=== PATIENT | female | born 1965 | race Caucasian/White ===

== ENCOUNTER 2021-08-07 11:14 | Emergency (ER) | payer BC, OTHER ==
[~2021-08-07] VITALS: Ht 175.3 cm; Wt 66.7 kg
[~2021-08-07 11:14] MED LIST: LEXAPRO20 MG
[2021-08-07] MEDS ORDERED: SODIUM CHLORIDE 0.9% 1000ML 1,000 ML IV STA (11:59)
[2021-08-07] MEDS ORDERED: LORAZEPAM INJ 2 MG/ML VIAL IV ONE (12:20)
[2021-08-07 12:30] LABS: BASOPHILS # (AUTO) 0.1 (0.0-0.1); BASOPHILS % 0.6 % (0.0-1.0); EOSINOPHILS # (AUTO) 0.2 (0.0-0.4); EOSINOPHILS % 2.4 % (0.0-6.0); HEMATOCRIT 50.7 % (34.2-44.1); HEMOGLOBIN 17.5 g/dL (12.0-16.0); LYMPHOCYTES # (AUTO) 1.8 (1.0-3.2); LYMPHOCYTES % 20.2 % (18.0-39.1); MEAN CORPUSCULAR HEMOGLOBIN 33.5 pg (28-32); MEAN CORPUSCULAR HGB CONC 34.5 g/dL (31-35); MEAN CORPUSCULAR VOLUME 97.1 fL (81-99); MONOCYTES # (AUTO) 0.6 (0.2-0.8); MONOCYTES % 6.7 % (4.4-11.3); NEUTROPHILS # (AUTO) 6.2 (2.1-6.9); NEUTROPHILS % 69.6 % (38.7-80.0); PLATELET COUNT 292 x10e3/uL (140-360); RED BLOOD COUNT 5.22 x10e6/uL (3.6-5.1); RED CELL DISTRIBUTION WIDTH 13.2 % (11.7-14.4)
[2021-08-07 12:50] LABS: SALICYLATE < 5.0 mg/dL (0-30)
[2021-08-07 12:51] LABS: ALBUMIN 4.8 g/dL (3.5-5.0); ALBUMIN/GLOBULIN RATIO 1.4 (0.8-2.0); ANION GAP 19.1 mmol/L (8-16); CALCIUM 9.7 mg/dL (8.4-10.2); CLARITY,URINE CLEAR (CLEAR); COLOR,URINE YELLOW (YELLOW); CREATININE, SERUM 0.87 mg/dL (0.57-1.11); KETONES,URINE NEGATIVE (NEGATIVE); LEUKOCYTE ESTERASE ,URINE NEGATIVE (NEGATIVE); MAGNESIUM 1.7 MG/DL (1.3-2.1); NITRITE,URINE POSITIVE (NEGATIVE); POTASSIUM 4.1 mmol/L (3.5-5.1); PROTEIN,URINE DIPSTICK NEGATIVE (NEGATIVE); URINE UROBILINOGEN 0.2 mg/dL (0.2 - 1)
[2021-08-07 12:53] LABS: AMPHETAMINES SCREEN,URINE NEGATIVE (NEGATIVE); BENZODIAZEPINES SCREEN,URINE NEGATIVE (NEGATIVE); PHENCYCLIDINE SCREEN,URINE NEGATIVE (NEGATIVE)
[2021-08-07 13:01] LABS: BACTERIA,URINE FEW /HPF; EPITHELIAL CELLS,URINE FEW /LPF; MUCUS,URINE MODERATE (RARE)
[2021-08-07 13:11] LABS: CREATINE KINASE MB 1.5 ng/mL (0-5.0); THYROID STIMULATING HORMONE 1.447 uIU/mL (0.350-4.940)
[2021-08-07] MEDS ORDERED: CEFTRIAXONE 1 GM in SODIUM CHLORIDE 0.9% 50ML 50 ML IV ONE (15:45)
[2021-08-07 18:53] VITALS: BP 123/63
== END 2021-08-07 18:56 | disposition other institution (70) ==
LOC: ER 12:00
DX: R41.82 Altered mental status, unspecified (principal); K21.9 Gastro-esophageal reflux disease without esophagitis; F41.9 Anxiety disorder, unspecified; F17.210 Nicotine dependence, cigarettes, uncomplicated
CPT/HCPCS: 36415; 70450; 71045; 80053; 80307; 80320; 80329 ×2; 81001; 82550; 82553; 83735; 84443; 84484; 85025; 87086; 87186; 93005; 99284; J0696; J2060; J7030; U0002

== ENCOUNTER → 2025-05-09 | Day surgery (SDC) | payer OTHER ==
[~2025-05-09] MED LIST changes: +ADK 10 PO; +LIDOCAINE HCL 2% LOCAL INJ 5 ML SDV VIAL INJ ONE; +LOW DOSE ASPIRI81 MG PO; +METOPROLOL SUCC25 MG PO; +MIDAZOLAM HCL 2 MG/2 ML VIAL ONE; +PANTOPRAZOLE SO40 MG PO; +PRAVASTATIN SOD20 MG PO; +PROPOFOL IV EMULSION 50 ML IV ONE; +[UNRECOGNIZED DRUG - OTHER] PO
[2025-05-09] MEDS: LACTATED RINGER'S 1,000 ML ONE (12:43)
[2025-05-09 13:52] VITALS: TEMP 98.3
[2025-05-09 14:35] VITALS: BP 118/77; PULSE 68; RESP 16; O2SAT 100
== END | disposition home or self-care (01) ==
LOC: OR 11:12
PROVIDERS: ATTEND Internal Medicine Gastroenterology
DX: Z12.11 Encounter for screening for malignant neoplasm of colon (principal); K57.30 Diverticulosis of large intestine without perforation or abscess without bleeding; K63.5 Polyp of colon; K64.8 Other hemorrhoids; K21.9 Gastro-esophageal reflux disease without esophagitis; K44.9 Diaphragmatic hernia without obstruction or gangrene; K31.7 Polyp of stomach and duodenum; K31.89 Other diseases of stomach and duodenum; F17.210 Nicotine dependence, cigarettes, uncomplicated; F10.90 Alcohol use, unspecified, uncomplicated; Z79.82 Long term (current) use of aspirin; Z79.899 Other long term (current) drug therapy; Z01.810 Encounter for preprocedural cardiovascular examination
CPT/HCPCS: 43239; 45384; 45385; 93005; J2003; J2250; J2704; J7121